=== PATIENT | female | born 1965 | race Caucasian/White ===

== ENCOUNTER 2021-04-07 21:06 | Observation (INO) | payer BC ==
[2021-04-07] MEDS ORDERED: Sodium Chloride 0.9% 1000 ML 1,000 ML IV STA (21:17)
[2021-04-07] MEDS ORDERED: BABY ASPIRIN 81 MG CHEW PO ONE (21:17)
[2021-04-07] MEDS ORDERED: BABY ASPIRIN 81 MG CHEW ONE (21:27)
[2021-04-07] MEDS ORDERED: Sodium Chloride 0.9% 1000 ML 1,000 ML ONE (21:27)
--- NOTE | 2021-04-07 21:32 | ERPHSYRPT ---
- History of Present Illness Time Seen by Provider: 04/07/21 21:29 Historian: patient Exam Limitations: no limitations Patient Subjective Stated Complaint: chest pain Triage Nursing Assessment: pt c/o chest pain while on a walk. Pt had pain to center of chest, up left side of neck and down left arm. Pt's fingertips felt numb/kelin. Pt became sob with this. Pt had similar episode to this last weekend but it was primarily heartburn, and was relieved with rest. Physician History: Chest pain started approximately 1 hour ago during regular walk. pt c/o chest pain while on a walk. Pt had pain to center of chest, up left side of neck and down left arm. Pt's fingertips felt numb/kelin. Pt became sob with this. Pt had similar episode to this last weekend but it was primarily heartburn, and was relieved with rest. Timing/Duration: today Activities at Onset: activity Quality: aching Location: substernal Chest Pain Radiation: arm Severity of Pain-Max: mild Severity of Pain-Current: mild Modifying Factors: Improves With: nothing Associated Symptoms: denies symptoms Prior Chest Pain/Cardiac Workup: no prior cardiac workup Nitro Today/Relief: no nitro taken today Aspirin Treatment Today: no aspirin today Allergies/Adverse Reactions: No Known Drug Allergies Allergy (Unverified 04/07/21 21:20) Hx Tetanus, Diphtheria Vaccination/Date Given: No Hx Influenza Vaccination/Date Given: Yes Hx Pneumococcal Vaccination/Date Given: Yes Immunizations Up to Date: No Travel Risk - International Travel Have you traveled outside of the country in past 3 weeks: No - Coronavirus Screening Are you exhibiting any of the following symptoms?: No Close contact with a COVID-19 positive Pt in past 14-21 Days: No - Vaccine Status Have you recieved a Covid-19 vaccination: Yes 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: Moderna - Vaccination Dates Date of 2cond Vaccination (if applicable): 01/11/21 - Review of Systems Constitutional: No Fever, No Chills Eyes: No Symptoms Ears, Nose, & Throat: No Symptoms Respiratory: No Cough, No Dyspnea Cardiac: Chest Pain, No Edema, No Syncope Abdominal/Gastrointestinal: No Abdominal Pain, No Nausea, No Vomiting, No Diarrhea Genitourinary Symptoms: No Dysuria Musculoskeletal: No Back Pain, No Neck Pain Skin: No Rash Neurological: No Dizziness, No Focal Weakness, No Sensory Changes Psychological: No Symptoms Endocrine: No Symptoms All Other Systems: Reviewed and Negative - Past Medical History Pertinent Past Medical History: Yes Neurological History: No Pertinent History ENT History: No Pertinent History Cardiac History: Arrhythmia Respiratory History: No Pertinent History Endocrine Medical History: Diabetes Type II Musculoskeletal History: Arthritis GI Medical History: GERD History: No Pertinent History Psycho-Social History: Anxiety, Depression Female Reproductive Disorders: No Pertinent History Other Medical History: anemia - Past Surgical History Past Surgical History: Yes Neuro Surgical History: No Pertinent History Cardiac: No Pertinent History Respiratory: No Pertinent History Gastrointestinal: No Pertinent History Genitourinary: No Pertinent History Musculoskeletal: Other Female Surgical History: Section, Tubal Ligation Other Surgical History: gastric bypass. carpal tunnel - Social History Smoking Status: Never smoker Exposure to second hand smoke: Yes Drug Use: none Patient Lives Alone: No - Nursing Vital Signs Nursing Vital Signs: Initial Vital Signs Temperature 97.0 F 04/07/21 21:08 Pulse Rate 77 04/07/21 21:08 Respiratory Rate 20 04/07/21 21:08 Blood Pressure 142/58 04/07/21 21:08 O2 Sat by Pulse Oximetry 98 04/07/21 21:08 Pain Scale Pain Intensity 0 - Physical Exam General Appearance: no apparent distress, alert Eye Exam: PERRL/EOMI, eyes nml inspection Ears, Nose, Throat Exam: normal ENT inspection, moist mucous membranes Neck Exam: normal inspection, non-tender, supple, full range of motion Respiratory Exam: normal breath sounds, lungs clear, No respiratory distress Cardiovascular Exam: regular rate/rhythm, normal heart sounds Gastrointestinal/Abdomen Exam: soft, No tenderness, No mass Back Exam: normal inspection, No CVA tenderness, No vertebral tenderness Extremity Exam: normal inspection, normal range of motion Neurologic Exam: alert, oriented x 3, cooperative, normal mood/affect, sensation nml, No motor deficits Skin Exam: normal color, warm, dry SpO2: 98 - Course Nursing assessment & vital signs reviewed: Yes EKG Interpreted by Me: Sinus Rhythm - Radiology Exams Chest X-ray Interpretation: Reviewed by me Ordered Tests: Active Orders 24 hr Category Date Time Status Comparison Shopper STAT Care 04/07/21 21:18 Active EKG-ER Only STAT Care 04/07/21 21:17 Active IV Insertion STAT Care 04/07/21 21:17 Active Oxygen-ED Only Nasal Cannula 2 lpm Care 04/07/21 21:17 Active CHEST 1 VIEW (PORTABLE) Stat Exams 04/07/21 21:18 Ordered CBC W DIFF Stat Lab 04/07/21 21:36 Completed CMP Stat Lab 04/07/21 21:17 Completed D-DIMER QUANTITATIVE Stat Lab 04/07/21 21:36 Completed TROPONIN Q3H Lab 04/07/21 21:36 Completed TROPONIN Q3H Lab 04/08/21 00:30 Ordered TROPONIN Q3H Lab 04/08/21 03:30 Ordered TROPONIN Q3H Lab 04/08/21 06:30 Ordered TROPONIN Q3H Lab 04/08/21 09:30 Ordered Medication Summary Generic Name Dose Route Start Last Admin Trade Name Freq PRN Reason Stop Dose Admin Sodium Chloride 1,000 mls @ 999 mls/hr 04/07/21 21:17 04/07/21 21:28 Sodium Chloride 0.9% 1000 Ml IV 04/07/21 22:17 999 mls/hr .Q1H1M STA Administration Discontinued Medications Generic Name Dose Route Start Last Admin Trade Name Freq PRN Reason Stop Dose Admin Aspirin 81 mg 04/07/21 21:17 04/07/21 21:28 Baby Aspirin 81 Mg Chew PO 04/07/21 21:18 81 mg STAT ONE Administration Aspirin Confirm 04/07/21 21:27 Baby Aspirin 81 Mg Chew Administered 04/07/21 21:28 Dose 81 mg .ROUTE .STK-MED ONE Sodium Chloride Confirm 04/07/21 21:27 Sodium Chloride 0.9% 1000 Ml Administered 04/07/21 21:28 Dose 1,000 mls @ ud .ROUTE .STK-MED ONE Lab/Rad Data: Laboratory Result Diagrams 04/07/21 21:36 04/07/21 21:17 Laboratory Results 04/07/21 04/07/21 04/07/21 Range/Units 21:36 21:36 21:36 WBC 9.2 (4.0-10.5) K/mm3 RBC 4.02 L (4.1-5.4) M/mm3 Hgb 11.8 L (12.0-16.0) gm/dl Hct 37.0 (35-47) % MCV 92.0 (78-100) fl MCH 29.4 (26-32) pg MCHC 31.9 L (32-36) g/dl RDW 13.5 (11.5-14.0) % Plt Count 191 (150-450) K/mm3 MPV 12.8 H (7.5-11.0) fl Gran % 50.9 (36.0-66.0) % Eos # (Auto) 1.66 H (0-0.5) Absolute Lymphs (auto) 2.39 (1.0-4.6) Absolute Monos (auto) 0.44 (0.0-1.3) Lymphocytes % 26.0 (24.0-44.0) % Monocytes % 4.8 (0.0-12.0) % Eosinophils % 18.1 H (0.00-5.0) % Basophils % 0.2 (0.0-0.4) % Absolute Granulocytes 4.68 (1.4-6.9) Basophils # 0.02 (0-0.4) D-Dimer 444 (215-500) ng/mL Sodium (137-145) mmol/L Potassium (3.5-5.1) mmol/L Chloride (98-107) mmol/L Carbon Dioxide (22-30) mmol/L Anion Gap (5-15) MEQ/L BUN (7-17) mg/dL Creatinine (0.52-1.04) mg/dL Estimated GFR ML/MIN Glucose (74-106) mg/dL Calcium (8.4-10.2) mg/dL Total Bilirubin (0.2-1.3) mg/dL AST (14-36) U/L ALT (0-35) U/L Alkaline Phosphatase (38-126) U/L Troponin I < 0.012 (0.000-0.034) ng/mL Serum Total Protein (6.3-8.2) g/dL Albumin (3.5-5.0) g/dL 04/07/21 Range/Units 21:17 WBC (4.0-10.5) K/mm3 RBC (4.1-5.4) M/mm3 Hgb (12.0-16.0) gm/dl Hct (35-47) % MCV (78-100) fl MCH (26-32) pg MCHC (32-36) g/dl RDW (11.5-14.0) % Plt Count (150-450) K/mm3 MPV (7.5-11.0) fl Gran % (36.0-66.0) % Eos # (Auto) (0-0.5) Absolute Lymphs (auto) (1.0-4.6) Absolute Monos (auto) (0.0-1.3) Lymphocytes % (24.0-44.0) % Monocytes % (0.0-12.0) % Eosinophils % (0.00-5.0) % Basophils % (0.0-0.4) % Absolute Granulocytes (1.4-6.9) Basophils # (0-0.4) D-Dimer (215-500) ng/mL Sodium 143 (137-145) mmol/L Potassium 4.0 (3.5-5.1) mmol/L Chloride 109 H (98-107) mmol/L Carbon Dioxide 24 (22-30) mmol/L Anion Gap 14.2 (5-15) MEQ/L BUN 15 (7-17) mg/dL Creatinine 0.88 (0.52-1.04) mg/dL Estimated GFR > 60.0 ML/MIN Glucose 126 H (74-106) mg/dL Calcium 9.2 (8.4-10.2) mg/dL Total Bilirubin 0.30 (0.2-1.3) mg/dL AST 32 (14-36) U/L ALT 25 (0-35) U/L Alkaline Phosphatase 60 (38-126) U/L Troponin I (0.000-0.034) ng/mL Serum Total Protein 7.3 (6.3-8.2) g/dL Albumin 4.4 (3.5-5.0) g/dL - Progress Progress: improved Air Movement: good Blood Culture(s) Obtained: No Antibiotics given: No Discussed with : Rafael Will see patient in: hospital (observation) - Departure Departure Disposition: Home Clinical Impression: Chest pain radiating to arm Type 2 diabetes mellitus Qualifiers: 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
[2021-04-07 21:40] LABS: Absolute Neutrophil Ct (ANC) 4.68 (1.4-6.9); BASOPHIL % 0.2 % (0.0-0.4); Basophil (Absolute #) 0.02 (0-0.4); Eosinophil % 18.1 % (0.00-5.0); Eosinophil (Absolute #) 1.66 (0-0.5); Hemoglobin 11.8 gm/dl (12.0-16.0); Lymphocyte (Absolute #) 2.39 (1.0-4.6); Mean Corpuscular Hemoglobin 29.4 pg (26-32); Mean Corpuscular Hgb Concent. 31.9 g/dl (32-36); Mean Platelet Volume 12.8 fl (7.5-11.0); Monocyte (Absolute #) 0.44 (0.0-1.3); Monocytes % 4.8 % (0.0-12.0); Neutrophil % 50.9 % (36.0-66.0); Platelet Count 191 K/mm3 (150-450); Red Blood Count 4.02 M/mm3 (4.1-5.4); Red Cell Distribution Width 13.5 % (11.5-14.0); White Blood Count 9.2 K/mm3 (4.0-10.5)
[2021-04-07 21:51] LABS: ALBUMIN 4.4 g/dL (3.5-5.0); ALKALINE PHOSPHATASE 60 U/L (38-126); ANION GAP 14.2 MEQ/L (5-15); BLOOD UREA NITROGEN 15 mg/dL (7-17); CHLORIDE 109 mmol/L (98-107); Calcium 9.2 mg/dL (8.4-10.2); Carbon Dioxide 24 mmol/L (22-30); Creatinine 1 0.88 mg/dL (0.52-1.04); EST GLOMERULAR FILTRATION RATE > 60.0 ML/MIN; Glucose 126 mg/dL (74-106); SGOT/AST 32 U/L (14-36); SGPT/ALT 25 U/L (0-35); SODIUM 143 mmol/L (137-145); Total Protein 7.3 g/dL (6.3-8.2)
[2021-04-07 23:17] LABS: INFLUENZA A NEGATIVE (NEGATIVE); INFLUENZA B NEGATIVE (NEGATIVE); RESPIRATORY SYNCTIAL VIRUS NEGATIVE (Negative)
[2021-04-07] MEDS ORDERED: Senokot-S Tablet PO PRN (23:40)
[2021-04-07] MEDS ORDERED: MILK OF MAGNESIA 30 ML PO PRN (23:40)
[2021-04-07] MEDS ORDERED: MAALOX ES 30 ML UNIT DOSE PO PRN (23:40)
[2021-04-07] MEDS ORDERED: Zofran 4 MG/2 ML VIAL IV PRN (23:40)
[2021-04-07] MEDS ORDERED: TYLENOL 325 MG PO PRN (23:40)
[2021-04-07] MEDS ORDERED: HUMALOG SQ PRN (23:40)
[2021-04-08] MEDS: BUSPAR 5 MG PO SCH ×2 (01:30→10:08)
[2021-04-08] MEDS: NEURONTIN 300 MG PO SCH ×2 (01:30→10:09)
[2021-04-08] MEDS: Naprosyn 500 MG PO SCH ×2 (01:30→10:07)
[2021-04-08] MEDS: Glucophage 500 MG PO SCH ×2 (01:31→07:39)
[2021-04-08] MEDS: Pepcid 20 MG PO SCH ×2 (01:31→10:08)
[2021-04-08 05:10] LABS: NT PRO BNP 75.3 pg/mL (0-900); TSH, 3RD Generation 0.688 mIU/L (0.47-4.68)
[2021-04-08 06:58] LABS: Risk Ratio 2.1
--- NOTE | 2021-04-08 07:23 | XRAY ---
Indication: Chest pain. Comparison: None Portable apical lordotic chest clear. Heart borderline enlarged. Bony thorax intact with mild degenerative changes.
[2021-04-08] MEDS ORDERED: MEDICATION INTERVENTION MC SCH (08:00)
[2021-04-08] MEDS ORDERED: LEVOTHYROXINE SODIUM 175 MCG PO SCH (10:00)
[2021-04-08] MEDS ORDERED: VORTIOXETINE HYDROBROMIDE 10 MG PO SCH (10:00)
[2021-04-08] MEDS ORDERED: NEURONTIN 300 MG PO SCH (10:00)
[2021-04-08] MEDS ORDERED: Wellbutrin XL 150 MG PO SCH (10:00)
[2021-04-08] MEDS ORDERED: SYNTHROID 100 MCG PO SCH (10:00)
[2021-04-08] MEDS ORDERED: SYNTHROID 75 MCG PO SCH (10:00)
[2021-04-08 11:43] VITALS: BP 128/62; PULSE 56; O2SAT 98
--- NOTE | 2021-04-08 13:31 | PCM.HP.ADD ---
Addendum to History & Physical - History & Physical Addendum Addendum to History & Physical: This certifies that the History & Physical in the electronic chart reflects the current health status of the patient. If there are changes in the H&P these changes/exceptions are listed as follows.
--- NOTE | 2021-04-08 14:12 | PCM.DCORD ---
- Discharge Disposition: Home, Self-Care Condition: Good Prescriptions: New Albuterol 8 gm Mdi Hfa [Ventolin Hfa MDI] 18 gm IH Q4-6HPRN PRN #1 [id number] PRN Reason: wheezing Continue Bupropion HCl Xl 150 mg [Wellbutrin XL 150 MG] 300 mg PO DAILY Vortioxetine Hydrobromide [Trintellix] 10 mg PO DAILY Naproxen 500 mg [Naprosyn 500 MG] 500 mg PO BID Metformin HCl 500 mg [Glucophage 500 MG] 500 mg PO BID Gabapentin 300 mg [Neurontin 300 mg] 300 mg PO TID Famotidine 20 mg [Pepcid 20 MG] 40 mg PO BID Buspirone HCl 5 mg [Buspar 5 mg] 10 mg PO TID Levothyroxine Sodium [Levothyroxine] 175 mcg PO DAILY Instructions: Chest Pain (DC) Forms: Discharge Instructions
--- NOTE | 2021-04-08 14:19 | PCM.SSS ---
History of Present Illness - Chief Complaint Chief Complaint: chest pain r/o MT History of Present Illness: is a 56 year old female with PMH DM2 with hypothyroid. She was on insulin until bariatric surgery 2004.She was started on Ozempic with PCP DR Stevens and has had 2 injections and developed GERD last week. She presented to ER with chest pain radiated to LUE and was admitted for observation to r/o MT. Medications & Allergies Home Medications: Home Medication List Albuterol 8 gm Mdi Hfa [Ventolin Hfa MDI] 18 gm IH Q4-6HPRN PRN #1 [email or web address] 04/08/21 [Rx] Bupropion HCl Xl 150 mg [Wellbutrin XL 150 MG] 300 mg PO DAILY 04/08/21 [History Confirmed 04/08/21] Buspirone HCl 5 mg [Buspar 5 mg] 10 mg PO TID 04/08/21 [History Confirmed 04/08/21] Famotidine 20 mg [Pepcid 20 MG] 40 mg PO BID 04/08/21 [History Confirmed 04/08/21] Gabapentin 300 mg [Neurontin 300 mg] 300 mg PO TID 04/08/21 [History Confirmed 04/08/21] Levothyroxine Sodium [Levothyroxine] 175 mcg PO DAILY 04/08/21 [History Confirmed 04/08/21] Metformin HCl 500 mg [Glucophage 500 MG] 500 mg PO BID 04/08/21 [History Confirmed 04/08/21] Naproxen 500 mg [Naprosyn 500 MG] 500 mg PO BID 04/08/21 [History Confirmed 04/08/21] Vortioxetine Hydrobromide [Trintellix] 10 mg PO DAILY 04/08/21 [History Confirmed 04/08/21] Allergies/Adverse Reactions: Allergies Allergy/AdvReac Type Severity Reaction Status Date / Time No Known Drug Allergies Allergy Unverified 04/07/21 21:20 - Past Medical History Past Medical History: Yes Neurological History: No Pertinent History ENT History: No Pertinent History Cardiac History: No Pertinent History Respiratory History: Sleep Apnea Endocrine Medical History: Diabetes Type II, Hypothyroidism Musculoskelatal History: Osteoarthritis GI Medical History: No Pertinent History History: No Pertinent History Pyscho-Social History: Anxiety, Depression Reproductive Disorders: No Pertinent History Comment: anemia - Female History Are you now?: No - Past Surgical History Past Surgical History: Yes Neuro Surgical History: No Pertinent History Cardiac History: No Pertinent History Respiratory Surgery: No Pertinent History GI Surgical History: Other Genitourinary Surgical Hx: No Pertinent History Musculskeletal Surgical Hx: No Pertinent History Female Surgical History: Tubal Ligation Other Surgical History: gastric bypass. carpal tunnel - Social History Smoking Status: Never smoker Exposure to second hand smoke: Yes Alcohol: Daily Drug Use: none - Physical Exam Vital Signs: Vital Signs - 24 hr Temp Pulse Pulse Resp BP Pulse Ox 04/08/21 11:42 98.2 F 56 L 16 128/62 98 04/08/21 07:32 98.2 F 54 L 16 111/53 97 04/08/21 03:52 97.5 F 54 L 18 111/54 97 04/07/21 23:40 97.9 F 59 L 19 137/61 97 04/07/21 23:10 55 L 15 135/53 94 L 04/07/21 22:19 98 04/07/21 22:09 63 124/60 98 04/07/21 21:09 80 04/07/21 21:08 97.0 F 77 20 142/58 98 Results - Labs Lab/Micro Results: Lab Results-Last 24 Hours 04/07/21 04/07/21 04/07/21 Range/Units 21:17 21:36 21:36 WBC 9.2 (4.0-10.5) K/mm3 RBC 4.02 L (4.1-5.4) M/mm3 Hgb 11.8 L (12.0-16.0) gm/dl Hct 37.0 (35-47) % MCV 92.0 (78-100) fl MCH 29.4 (26-32) pg MCHC 31.9 L (32-36) g/dl RDW 13.5 (11.5-14.0) % Plt Count 191 (150-450) K/mm3 MPV 12.8 H (7.5-11.0) fl Gran % 50.9 (36.0-66.0) % Eos # (Auto) 1.66 H (0-0.5) Absolute Lymphs (auto) 2.39 (1.0-4.6) Absolute Monos (auto) 0.44 (0.0-1.3) Lymphocytes % 26.0 (24.0-44.0) % Monocytes % 4.8 (0.0-12.0) % Eosinophils % 18.1 H (0.00-5.0) % Basophils % 0.2 (0.0-0.4) % Absolute Granulocytes 4.68 (1.4-6.9) Basophils # 0.02 (0-0.4) D-Dimer 444 (215-500) ng/mL Sodium 143 (137-145) mmol/L Potassium 4.0 (3.5-5.1) mmol/L Chloride 109 H (98-107) mmol/L Carbon Dioxide 24 (22-30) mmol/L Anion Gap 14.2 (5-15) MEQ/L BUN 15 (7-17) mg/dL Creatinine 0.88 (0.52-1.04) mg/dL Estimated GFR > 60.0 ML/MIN Glucose 126 H (74-106) mg/dL POC Glucometer (74 to 106) mg/dL Hemoglobin A1c (4.5-6.0) % Calcium 9.2 (8.4-10.2) mg/dL Total Bilirubin 0.30 (0.2-1.3) mg/dL AST 32 (14-36) U/L ALT 25 (0-35) U/L Alkaline Phosphatase 60 (38-126) U/L Troponin I (0.000-0.034) ng/mL NT-Pro-B Natriuret Pep (0-900) pg/mL Serum Total Protein 7.3 (6.3-8.2) g/dL Albumin 4.4 (3.5-5.0) g/dL Triglycerides (30-150) mg/dL Cholesterol (50-200) mg/dL LDL Cholesterol (30-100) mg/dL HDL Cholesterol (40-60) mg/dL Heart Disease Risk Ratio TSH 3rd Generation (0.47-4.68) mIU/L Influenza Type A Ag (NEGATIVE) Influenza Type B Ag (NEGATIVE) RSV (PCR) (Negative) SARS-CoV-2 (PCR) (NEGATIVE) 05/04/07/21 04/08/21 Range/Units 21:36 22:31 00:42 WBC (4.0-10.5) K/mm3 RBC (4.1-5.4) M/mm3 Hgb (12.0-16.0) gm/dl Hct (35-47) % MCV (78-100) fl MCH (26-32) pg MCHC (32-36) g/dl RDW (11.5-14.0) % Plt Count (150-450) K/mm3 MPV (7.5-11.0) fl Gran % (36.0-66.0) % Eos # (Auto) (0-0.5) Absolute Lymphs (auto) (1.0-4.6) Absolute Monos (auto) (0.0-1.3) Lymphocytes % (24.0-44.0) % Monocytes % (0.0-12.0) % Eosinophils % (0.00-5.0) % Basophils % (0.0-0.4) % Absolute Granulocytes (1.4-6.9) Basophils # (0-0.4) D-Dimer (215-500) ng/mL Sodium (137-145) mmol/L Potassium (3.5-5.1) mmol/L Chloride (98-107) mmol/L Carbon Dioxide (22-30) mmol/L Anion Gap (5-15) MEQ/L BUN (7-17) mg/dL Creatinine (0.52-1.04) mg/dL Estimated GFR ML/MIN Glucose (74-106) mg/dL POC Glucometer (74 to 106) mg/dL Hemoglobin A1c (4.5-6.0) % Calcium (8.4-10.2) mg/dL Total Bilirubin (0.2-1.3) mg/dL AST (14-36) U/L ALT (0-35) U/L Alkaline Phosphatase (38-126) U/L Troponin I < 0.012 < 0.012 (0.000-0.034) ng/mL NT-Pro-B Natriuret Pep (0-900) pg/mL Serum Total Protein (6.3-8.2) g/dL Albumin (3.5-5.0) g/dL Triglycerides (30-150) mg/dL Cholesterol (50-200) mg/dL LDL Cholesterol (30-100) mg/dL HDL Cholesterol (40-60) mg/dL Heart Disease Risk Ratio TSH 3rd Generation (0.47-4.68) mIU/L Influenza Type A Ag NEGATIVE (NEGATIVE) Influenza Type B Ag NEGATIVE (NEGATIVE) RSV (PCR) NEGATIVE (Negative) SARS-CoV-2 (PCR) NEGATIVE (NEGATIVE) 04/08/21 04/08/21 04/08/21 Range/Units 03:41 04:03 05:00 WBC (4.0-10.5) K/mm3 RBC (4.1-5.4) M/mm3 Hgb (12.0-16.0) gm/dl Hct (35-47) % MCV (78-100) fl MCH (26-32) pg MCHC (32-36) g/dl RDW (11.5-14.0) % Plt Count (150-450) K/mm3 MPV (7.5-11.0) fl Gran % (36.0-66.0) % Eos # (Auto) (0-0.5) Absolute Lymphs (auto) (1.0-4.6) Absolute Monos (auto) (0.0-1.3) Lymphocytes % (24.0-44.0) % Monocytes % (0.0-12.0) % Eosinophils % (0.00-5.0) % Basophils % (0.0-0.4) % Absolute Granulocytes (1.4-6.9) Basophils # (0-0.4) D-Dimer (215-500) ng/mL Sodium (137-145) mmol/L Potassium (3.5-5.1) mmol/L Chloride (98-107) mmol/L Carbon Dioxide (22-30) mmol/L Anion Gap (5-15) MEQ/L BUN (7-17) mg/dL Creatinine (0.52-1.04) mg/dL Estimated GFR ML/MIN Glucose (74-106) mg/dL POC Glucometer (74 to 106) mg/dL Hemoglobin A1c 5.84 (4.5-6.0) % Calcium (8.4-10.2) mg/dL Total Bilirubin (0.2-1.3) mg/dL AST (14-36) U/L ALT (0-35) U/L Alkaline Phosphatase (38-126) U/L Troponin I < 0.012 (0.000-0.034) ng/mL NT-Pro-B Natriuret Pep 75.3 (0-900) pg/mL Serum Total Protein (6.3-8.2) g/dL Albumin (3.5-5.0) g/dL Triglycerides (30-150) mg/dL Cholesterol (50-200) mg/dL LDL Cholesterol (30-100) mg/dL HDL Cholesterol (40-60) mg/dL Heart Disease Risk Ratio TSH 3rd Generation 0.688 (0.47-4.68) mIU/L Influenza Type A Ag (NEGATIVE) Influenza Type B Ag (NEGATIVE) RSV (PCR) (Negative) SARS-CoV-2 (PCR) (NEGATIVE) 04/08/21 04/08/21 04/08/21 Range/Units 06:30 06:30 09:35 WBC (4.0-10.5) K/mm3 RBC (4.1-5.4) M/mm3 Hgb (12.0-16.0) gm/dl Hct (35-47) % MCV (78-100) fl MCH (26-32) pg MCHC (32-36) g/dl RDW (11.5-14.0) % Plt Count (150-450) K/mm3 MPV (7.5-11.0) fl Gran % (36.0-66.0) % Eos # (Auto) (0-0.5) Absolute Lymphs (auto) (1.0-4.6) Absolute Monos (auto) (0.0-1.3) Lymphocytes % (24.0-44.0) % Monocytes % (0.0-12.0) % Eosinophils % (0.00-5.0) % Basophils % (0.0-0.4) % Absolute Granulocytes (1.4-6.9) Basophils # (0-0.4) D-Dimer (215-500) ng/mL Sodium (137-145) mmol/L Potassium (3.5-5.1) mmol/L Chloride (98-107) mmol/L Carbon Dioxide (22-30) mmol/L Anion Gap (5-15) MEQ/L BUN (7-17) mg/dL Creatinine (0.52-1.04) mg/dL Estimated GFR ML/MIN Glucose (74-106) mg/dL POC Glucometer (74 to 106) mg/dL Hemoglobin A1c (4.5-6.0) % Calcium (8.4-10.2) mg/dL Total Bilirubin (0.2-1.3) mg/dL AST (14-36) U/L ALT (0-35) U/L Alkaline Phosphatase (38-126) U/L Troponin I < 0.012 < 0.012 (0.000-0.034) ng/mL NT-Pro-B Natriuret Pep (0-900) pg/mL Serum Total Protein (6.3-8.2) g/dL Albumin (3.5-5.0) g/dL Triglycerides 90 (30-150) mg/dL Cholesterol 126 (50-200) mg/dL LDL Cholesterol 52 (30-100) mg/dL HDL Cholesterol 60 (40-60) mg/dL Heart Disease Risk Ratio 2.1 TSH 3rd Generation (0.47-4.68) mIU/L Influenza Type A Ag (NEGATIVE) Influenza Type B Ag (NEGATIVE) RSV (PCR) (Negative) SARS-CoV-2 (PCR) (NEGATIVE) 04/08/21 Range/Units 11:20 WBC (4.0-10.5) K/mm3 RBC (4.1-5.4) M/mm3 Hgb (12.0-16.0) gm/dl Hct (35-47) % MCV (78-100) fl MCH (26-32) pg MCHC (32-36) g/dl RDW (11.5-14.0) % Plt Count (150-450) K/mm3 MPV (7.5-11.0) fl Gran % (36.0-66.0) % Eos # (Auto) (0-0.5) Absolute Lymphs (auto) (1.0-4.6) Absolute Monos (auto) (0.0-1.3) Lymphocytes % (24.0-44.0) % Monocytes % (0.0-12.0) % Eosinophils % (0.00-5.0) % Basophils % (0.0-0.4) % Absolute Granulocytes (1.4-6.9) Basophils # (0-0.4) D-Dimer (215-500) ng/mL Sodium (137-145) mmol/L Potassium (3.5-5.1) mmol/L Chloride (98-107) mmol/L Carbon Dioxide (22-30) mmol/L Anion Gap (5-15) MEQ/L BUN (7-17) mg/dL Creatinine (0.52-1.04) mg/dL Estimated GFR ML/MIN Glucose (74-106) mg/dL POC Glucometer 68 L (74 to 106) mg/dL Hemoglobin A1c (4.5-6.0) % Calcium (8.4-10.2) mg/dL Total Bilirubin (0.2-1.3) mg/dL AST (14-36) U/L ALT (0-35) U/L Alkaline Phosphatase (38-126) U/L Troponin I (0.000-0.034) ng/mL NT-Pro-B Natriuret Pep (0-900) pg/mL Serum Total Protein (6.3-8.2) g/dL Albumin (3.5-5.0) g/dL Triglycerides (30-150) mg/dL Cholesterol (50-200) mg/dL LDL Cholesterol (30-100) mg/dL HDL Cholesterol (40-60) mg/dL Heart Disease Risk Ratio TSH 3rd Generation (0.47-4.68) mIU/L Influenza Type A Ag (NEGATIVE) Influenza Type B Ag (NEGATIVE) RSV (PCR) (Negative) SARS-CoV-2 (PCR) (NEGATIVE) Accuchecks Date 04/08/21 Time 11:42 - Radiology Impressions Radiology Exams & Impressions: Radiology Procedures Category Date Time Status CHEST 1 VIEW (PORTABLE) Stat Exams 04/07/21 21:18 Completed - Other Procedures and Tests Respiratory Therapy 04/07/21 23:40 EKG Q8HX2,QAMX3,PRN 04/07/21 23:44 BiPap/CPAP ROUTINE 04/09/21 05:00 EKG ONCE 04/10/21 05:00 EKG ONCE Assessment/Plan (1) Chest pain radiating to arm Current Visit: Yes Status: Resolved Assessment & Plan: serial troponins not elevated. D-dimer and BNP not elevated. 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 Denies sinus symptoms or rash,does have new GERD symptoms-will follow with PCP. Peak flow mildly decreased and Ventolin inhaler started as tx/trial. Code(s): D72.10 - EOSINOPHILIA, UNSPECIFIED (4) Bronchospasm Current Visit: Yes Status: Suspected Assessment & Plan: Peak flow today 300,380,410 (calculated twktup=[id number]). Described chest heaviness o n exertion. Code(s): J98.01 - ACUTE BRONCHOSPASM (5) Hypothyroid Current Visit: Yes Status: Chronic Assessment & Plan: TSH on 175mcg Levothyroxine = 0.688 Code(s): E03.9 - HYPOTHYROIDISM, UNSPECIFIED Hospital Summary - Vitals & Intake/Output Vital Signs: Vital Signs Temperature 98.2 F 04/08/21 11:42 Pulse Rate 56 L 04/08/21 11:42 Respiratory Rate 16 04/08/21 11:42 Blood Pressure 128/62 04/08/21 11:42 O2 Sat by Pulse Oximetry 98 04/08/21 11:42 Intake & Output: Intake & Output 04/06/21 04/07/21 04/08/21 04/09/21 11:59 11:59 11:59 11:59 Intake Total 580 380 Balance 580 380 Weight 115 kg - Lab Result Diagrams: 04/07/21 21:36 04/07/21 21:17 Lab Results-Last 24 Hrs: Lab Results-Last 24 Hours 04/07/21 04/07/21 04/07/21 Range/Units 21:17 21:36 21:36 WBC 9.2 (4.0-10.5) K/mm3 RBC 4.02 L (4.1-5.4) M/mm3 Hgb 11.8 L (12.0-16.0) gm/dl Hct 37.0 (35-47) % MCV 92.0 (78-100) fl MCH 29.4 (26-32) pg MCHC 31.9 L (32-36) g/dl RDW 13.5 (11.5-14.0) % Plt Count 191 (150-450) K/mm3 MPV 12.8 H (7.5-11.0) fl Gran % 50.9 (36.0-66.0) % Eos # (Auto) 1.66 H (0-0.5) Absolute Lymphs (auto) 2.39 (1.0-4.6) Absolute Monos (auto) 0.44 (0.0-1.3) Lymphocytes % 26.0 (24.0-44.0) % Monocytes % 4.8 (0.0-12.0) % Eosinophils % 18.1 H (0.00-5.0) % Basophils % 0.2 (0.0-0.4) % Absolute Granulocytes 4.68 (1.4-6.9) Basophils # 0.02 (0-0.4) D-Dimer 444 (215-500) ng/mL Sodium 143 (137-145) mmol/L Potassium 4.0 (3.5-5.1) mmol/L Chloride 109 H (98-107) mmol/L Carbon Dioxide 24 (22-30) mmol/L Anion Gap 14.2 (5-15) MEQ/L BUN 15 (7-17) mg/dL Creatinine 0.88 (0.52-1.04) mg/dL Estimated GFR > 60.0 ML/MIN Glucose 126 H (74-106) mg/dL POC Glucometer (74 to 106) mg/dL Hemoglobin A1c (4.5-6.0) % Calcium 9.2 (8.4-10.2) mg/dL Total Bilirubin 0.30 (0.2-1.3) mg/dL AST 32 (14-36) U/L ALT 25 (0-35) U/L Alkaline Phosphatase 60 (38-126) U/L Troponin I (0.000-0.034) ng/mL NT-Pro-B Natriuret Pep (0-900) pg/mL Serum Total Protein 7.3 (6.3-8.2) g/dL Albumin 4.4 (3.5-5.0) g/dL Triglycerides (30-150) mg/dL Cholesterol (50-200) mg/dL LDL Cholesterol (30-100) mg/dL HDL Cholesterol (40-60) mg/dL Heart Disease Risk Ratio TSH 3rd Generation (0.47-4.68) mIU/L Influenza Type A Ag (NEGATIVE) Influenza Type B Ag (NEGATIVE) RSV (PCR) (Negative) SARS-CoV-2 (PCR) (NEGATIVE) 04/07/21 04/07/21 04/08/21 Range/Units 21:36 22:31 00:42 WBC (4.0-10.5) K/mm3 RBC (4.1-5.4) M/mm3 Hgb (12.0-16.0) gm/dl Hct (35-47) % MCV (78-100) fl MCH (26-32) pg MCHC (32-36) g/dl RDW (11.5-14.0) % Plt Count (150-450) K/mm3 MPV (7.5-11.0) fl Gran % (36.0-66.0) % Eos # (Auto) (0-0.5) Absolute Lymphs (auto) (1.0-4.6) Absolute Monos (auto) (0.0-1.3) Lymphocytes % (24.0-44.0) % Monocytes % (0.0-12.0) % Eosinophils % (0.00-5.0) % Basophils % (0.0-0.4) % Absolute Granulocytes (1.4-6.9) Basophils # (0-0.4) D-Dimer (215-500) ng/mL Sodium (137-145) mmol/L Potassium (3.5-5.1) mmol/L Chloride (98-107) mmol/L Carbon Dioxide (22-30) mmol/L Anion Gap (5-15) MEQ/L BUN (7-17) mg/dL Creatinine (0.52-1.04) mg/dL Estimated GFR ML/MIN Glucose (74-106) mg/dL POC Glucometer (74 to 106) mg/dL Hemoglobin A1c (4.5-6.0) % Calcium (8.4-10.2) mg/dL Total Bilirubin (0.2-1.3) mg/dL AST (14-36) U/L ALT (0-35) U/L Alkaline Phosphatase (38-126) U/L Troponin I < 0.012 < 0.012 (0.000-0.034) ng/mL NT-Pro-B Natriuret Pep (0-900) pg/mL Serum Total Protein (6.3-8.2) g/dL Albumin (3.5-5.0) g/dL Triglycerides (30-150) mg/dL Cholesterol (50-200) mg/dL LDL Cholesterol (30-100) mg/dL HDL Cholesterol (40-60) mg/dL Heart Disease Risk Ratio TSH 3rd Generation (0.47-4.68) mIU/L Influenza Type A Ag NEGATIVE (NEGATIVE) Influenza Type B Ag NEGATIVE (NEGATIVE) RSV (PCR) NEGATIVE (Negative) SARS-CoV-2 (PCR) NEGATIVE (NEGATIVE) 04/08/21 04/08/21 04/08/21 Range/Units 03:41 04:03 05:00 WBC (4.0-10.5) K/mm3 RBC (4.1-5.4) M/mm3 Hgb (12.0-16.0) gm/dl Hct (35-47) % MCV (78-100) fl MCH (26-32) pg MCHC (32-36) g/dl RDW (11.5-14.0) % Plt Count (150-450) K/mm3 MPV (7.5-11.0) fl Gran % (36.0-66.0) % Eos # (Auto) (0-0.5) Absolute Lymphs (auto) (1.0-4.6) Absolute Monos (auto) (0.0-1.3) Lymphocytes % (24.0-44.0) % Monocytes % (0.0-12.0) % Eosinophils % (0.00-5.0) % Basophils % (0.0-0.4) % Absolute Granulocytes (1.4-6.9) Basophils # (0-0.4) D-Dimer (215-500) ng/mL Sodium (137-145) mmol/L Potassium (3.5-5.1) mmol/L Chloride (98-107) mmol/L Carbon Dioxide (22-30) mmol/L Anion Gap (5-15) MEQ/L BUN (7-17) mg/dL Creatinine (0.52-1.04) mg/dL Estimated GFR ML/MIN Glucose (74-106) mg/dL POC Glucometer (74 to 106) mg/dL Hemoglobin A1c 5.84 (4.5-6.0) % Calcium (8.4-10.2) mg/dL Total Bilirubin (0.2-1.3) mg/dL AST (14-36) U/L ALT (0-35) U/L Alkaline Phosphatase (38-126) U/L Troponin I < 0.012 (0.000-0.034) ng/mL NT-Pro-B Natriuret Pep 75.3 (0-900) pg/mL Serum Total Protein (6.3-8.2) g/dL Albumin (3.5-5.0) g/dL Triglycerides (30-150) mg/dL Cholesterol (50-200) mg/dL LDL Cholesterol (30-100) mg/dL HDL Cholesterol (40-60) mg/dL Heart Disease Risk Ratio TSH 3rd Generation 0.688 (0.47-4.68) mIU/L Influenza Type A Ag (NEGATIVE) Influenza Type B Ag (NEGATIVE) RSV (PCR) (Negative) SARS-CoV-2 (PCR) (NEGATIVE) 04/08/21 04/08/21 04/08/21 Range/Units 06:30 06:30 09:35 WBC (4.0-10.5) K/mm3 RBC (4.1-5.4) M/mm3 Hgb (12.0-16.0) gm/dl Hct (35-47) % MCV (78-100) fl MCH (26-32) pg MCHC (32-36) g/dl RDW (11.5-14.0) % Plt Count (150-450) K/mm3 MPV (7.5-11.0) fl Gran % (36.0-66.0) % Eos # (Auto) (0-0.5) Absolute Lymphs (auto) (1.0-4.6) Absolute Monos (auto) (0.0-1.3) Lymphocytes % (24.0-44.0) % Monocytes % (0.0-12.0) % Eosinophils % (0.00-5.0) % Basophils % (0.0-0.4) % Absolute Granulocytes (1.4-6.9) Basophils # (0-0.4) D-Dimer (215-500) ng/mL Sodium (137-145) mmol/L Potassium (3.5-5.1) mmol/L Chloride (98-107) mmol/L Carbon Dioxide (22-30) mmol/L Anion Gap (5-15) MEQ/L BUN (7-17) mg/dL Creatinine (0.52-1.04) mg/dL Estimated GFR ML/MIN Glucose (74-106) mg/dL POC Glucometer (74 to 106) mg/dL Hemoglobin A1c (4.5-6.0) % Calcium (8.4-10.2) mg/dL Total Bilirubin (0.2-1.3) mg/dL AST (14-36) U/L ALT (0-35) U/L Alkaline Phosphatase (38-126) U/L Troponin I < 0.012 < 0.012 (0.000-0.034) ng/mL NT-Pro-B Natriuret Pep (0-900) pg/mL Serum Total Protein (6.3-8.2) g/dL Albumin (3.5-5.0) g/dL Triglycerides 90 (30-150) mg/dL Cholesterol 126 (50-200) mg/dL LDL Cholesterol 52 (30-100) mg/dL HDL Cholesterol 60 (40-60) mg/dL Heart Disease Risk Ratio 2.1 TSH 3rd Generation (0.47-4.68) mIU/L Influenza Type A Ag (NEGATIVE) Influenza Type B Ag (NEGATIVE) RSV (PCR) (Negative) SARS-CoV-2 (PCR) (NEGATIVE) 04/08/21 Range/Units 11:20 WBC (4.0-10.5) K/mm3 RBC (4.1-5.4) M/mm3 Hgb (12.0-16.0) gm/dl Hct (35-47) % MCV (78-100) fl MCH (26-32) pg MCHC (32-36) g/dl RDW (11.5-14.0) % Plt Count (150-450) K/mm3 MPV (7.5-11.0) fl Gran % (36.0-66.0) % Eos # (Auto) (0-0.5) Absolute Lymphs (auto) (1.0-4.6) Absolute Monos (auto) (0.0-1.3) Lymphocytes % (24.0-44.0) % Monocytes % (0.0-12.0) % Eosinophils % (0.00-5.0) % Basophils % (0.0-0.4) % Absolute Granulocytes (1.4-6.9) Basophils # (0-0.4) D-Dimer (215-500) ng/mL Sodium (137-145) mmol/L Potassium (3.5-5.1) mmol/L Chloride (98-107) mmol/L Carbon Dioxide (22-30) mmol/L Anion Gap (5-15) MEQ/L BUN (7-17) mg/dL Creatinine (0.52-1.04) mg/dL Estimated GFR ML/MIN Glucose (74-106) mg/dL POC Glucometer 68 L (74 to 106) mg/dL Hemoglobin A1c (4.5-6.0) % Calcium (8.4-10.2) mg/dL Total Bilirubin (0.2-1.3) mg/dL AST (14-36) U/L ALT (0-35) U/L Alkaline Phosphatase (38-126) U/L Troponin I (0.000-0.034) ng/mL NT-Pro-B Natriuret Pep (0-900) pg/mL Serum Total Protein (6.3-8.2) g/dL Albumin (3.5-5.0) g/dL Triglycerides (30-150) mg/dL Cholesterol (50-200) mg/dL LDL Cholesterol (30-100) mg/dL HDL Cholesterol (40-60) mg/dL Heart Disease Risk Ratio TSH 3rd Generation (0.47-4.68) mIU/L Influenza Type A Ag (NEGATIVE) Influenza Type B Ag (NEGATIVE) RSV (PCR) (Negative) SARS-CoV-2 (PCR) (NEGATIVE) Micro Results-Entire Visit: Accuchecks Date 04/08/21 Time 11:42 - Radiology Exams Ordered Rad Exams-Entire Visit: Radiology Procedures Category Date Time Status CHEST 1 VIEW (PORTABLE) Stat Exams 04/07/21 21:18 Completed - Procedures and Test Procedures and Tests throughout Hospitalization: Therapy Orders & Screens 04/07/21 23:40 EKG Q8HX2,QAMX3,PRN Comment: 04/07/21 23:44 BiPap/CPAP ROUTINE Comment: Diagnosis: chest pain r/o MT 04/08/21 05:00 EKG ONCE Comment: Diagnosis: chest pain r/o MT 04/08/21 09:34 EKG STAT Comment: increased SOB and heaviness in chest Diagnosis: chest pain r/o MT 04/08/21 14:03 Peak Expiratory Flow Rate ONCE Comment: Reason For Exam: Diagnosis: chest pain r/o MT 04/09/21 05:00 EKG ONCE Comment: Diagnosis: chest pain r/o MT 04/10/21 05:00 EKG ONCE Comment: Diagnosis: chest pain r/o MT - Discharge Disposition: Home, Self-Care Condition: Good Prescriptions: New Albuterol 8 gm Mdi Hfa [Ventolin Hfa MDI] 18 gm IH Q4-6HPRN PRN #1 [email or web address] PRN Reason: wheezing Continue Bupropion HCl Xl 150 mg [Wellbutrin XL 150 MG] 300 mg PO DAILY Vortioxetine Hydrobromide [Trintellix] 10 mg PO DAILY Naproxen 500 mg [Naprosyn 500 MG] 500 mg PO BID Metformin HCl 500 mg [Glucophage 500 MG] 500 mg PO BID Gabapentin 300 mg [Neurontin 300 mg] 300 mg PO TID Famotidine 20 mg [Pepcid 20 MG] 40 mg PO BID Buspirone HCl 5 mg [Buspar 5 mg] 10 mg PO TID Levothyroxine Sodium [Levothyroxine] 175 mcg PO DAILY Instructions: Chest Pain (DC) Follow up with: ROBERT STEVENS MD [Primary Care Provider] - Forms: Discharge Instructions
== END 2021-04-08 14:47 | disposition home or self-care (01) ==
LOC: ED 21:06 → MED SURG 23:34
PROVIDERS: ADMIT Family Medicine; ATTEND Family Medicine
DX: R07.9 Chest pain, unspecified (principal); R06.02 Shortness of breath; E11.9 Type 2 diabetes mellitus without complications; Z79.899 Other long term (current) drug therapy; G47.30 Sleep apnea, unspecified; D72.10 Eosinophilia, unspecified; J98.01 Acute bronchospasm; E03.9 Hypothyroidism, unspecified; Z20.828 Contact with and (suspected) exposure to other viral communicable diseases
CPT/HCPCS: 0241U; 36000; 36415; 71045; 80053; 80061; 82607; 82947; 83036; 83721; 83880; 84443; 84484; 85025; 85379; 93005; 93041; 93268; 94150; 94660; 96360; 99285; 99291; G0378; A9270-GY